=== PATIENT | male | born 1960 | race Caucasian/White ===

== ENCOUNTER → 2018-04-04 13:25 | Outpatient (CLI) | payer OTHER ==
[2014-04-13 17:30] VITALS: BMI 37.3
[~2018-04-04 13:25] MED LIST: ELIQUIS2.5 MG PO; HYDROCODONE-APA1 TAB PO
== END | disposition home or self-care (01) ==
LOC: D.RAD 13:25
DX: R06.02 Shortness of breath (principal); M54.5 Low back pain

== ENCOUNTER 2020-05-28 21:17 | Observation (INO) | payer BC ==
[~2020-05-28] VITALS: Ht 188 cm; Wt 161.4 kg
--- NOTE | ~2020-05-28 | HEMODYNAMI ---
PATIENT:LAWANDA ARCHER MEDICAL RECORD: [id number] : 58 [facility] [id number] ADMISSION DATE: 05/28/20 Generatedon:111:14 Patient name: LAWANDA ARCHER Patient #: [id number] SSN: : 1960 Date of study: 05/29/2020 Page: Of Hemodynamic Procedure Report Patient Data Patient Demographics Procedure consent was obtained First Name: LAWANDA Gender: Male Last Name: SUZI : 1960 Patient #: [id number] Age: 59 year(s) Race: Unknown Additional ID: [id number] Contact details Address: [address] [place] [address] State: [place] City: [facility] Zip code: [address] Past Medical History Allergies: No known allergies Admission Admission Data Admission Date: 05/28/2020 Admission Time: 22:24 Room #: D.2117 Lab Results Lab Result Date: 05/29/2020 Lab Result Time: 0:00 Biochemistry Name Units Result Min Max BUN mg/dl 10 --(-*--)-- 7 18 Creatinine mg/dl 0.7 --(*---)-- 0.6 1.3 eGFR ml/min 90 --(*---)-- 90 120 NONAFRICAN CBC Name Units Result Min Max Hematocrit % 42.3 --(*---)-- 42 54 Hemoglobin g/dl 14.3 --(*---)-- 13.5 17.5 Procedure Procedure Types Cath Procedure Diagnostic Procedure C [facility] w/Coronaries Sedation Charges Moderate Sedation 10-24 minutes Procedure Description Procedure Date Procedure Date: 05/29/2020 Procedure Start Time: 11:00 Procedure End Time: 11:13 Procedure Staff Name Function Gabriele Medrano MD Performing Physician Marleny Ozuna RT Monitor Vibha De Leon RT Scrub Jyoti Marrero RN Nurse Procedure Data Cath Procedure Fluoroscopy Diagnostic fluoroscopy Total fluoroscopy Time: 0.9 time: 0.9 min min Diagnostic fluoroscopy Total fluoroscopy dose: 635 dose: 635 mGy mGy Contrast Material Contrast Material Type Amount (ml) Isovue 300 54 Entry Location Entry Primary Successful Side Size Upsize Upsize Entry Closure Succes sful Closure Location (Fr) 1 (Fr) 2 (Fr) Remarks Device Remarks Femoral Right 5 Fr Exoseal artery Estimated blood loss: 5 ml Diagnostic catheters Device Type Used For End Catheter Placement MULTIPACK JL 4.0 5Fr Procedure catheter MULTIPACK 3DRC 5Fr Procedure catheter MULTIPACK Pigtail 5 Fr Procedure catheter Procedure Complications No complications Procedure Medications Medication Administration Route Dosage Oxygen etCO2 Nasal cannula 2 l/min Lidocaine 2% added to field 20 Heparin Flush Bag added to field 2 bags (1000units/500ml NS) 0.9% NaCl I.V. 100 ml/hr Versed I.V. 1 mg Fentanyl I.V. 50 mcg Versed I.V. 1 mg Fentanyl I.V. 50 mcg Hemodynamics Rest HGB: 14.3 (g/dl) Heart Rate: 50 (bpm) Pressure Samples Time Site Value (mmHg) Purpose Heart Use Rate(bpm) 11:07 LV 117/13,18 Snapshot 44 11:07 LV 115/11,18 Snapshot 44 Gradients Valve Time Site Site Mean SEP/DFP Peak To Heart Use 1 2 (mmHg) (sec/min) Peak Rate (mmHg) (bpm) Aortic 11:08 LV AO 49 Snapshots Pre Cath Intra NCS Post Cath Vital Signs Time Heart Resp SPO2 etCO2 NIBP (mmHg) Rhythm Pain Sedation Rate (ipm) (%) (mmHg) Status Level (bpm) 10:49:07 49 18 98 0 157/96(108) NSR 0 (11) 10(A) , No pain 10:53:21 52 14 98 0 153/90(141) NSR 0 (11) 10(A) , No pain 10:57:37 49 11 98 29.7 128/96(112) NSR 0 (11) 10(A) , No pain 11:01:47 42 15 99 31.2 123/65(96) NSR 0 (11) 10(A) , No pain 11:05:53 44 13 99 28.2 132/78(97) NSR 0 (11) 10(A) , No pain 11:10:00 43 14 99 31.9 133/79(115) NSR 0 (11) 10(A) , No pain Medications Time Medication Route Dose Verified Delivered Reason Notes Eff ectiveness by by 10:55:59 Oxygen etCO2 2 Gabriele Roeie used for Nasal l/min [facility] Javier Marrero RN procedure cannula 10:56:10 Lidocaine 2% added 20ml Gabriele Gabriele for local to vial [facility] anesthetic field MD WALTON 10:56:18 Heparin Flush added 2 Gabriele Gabriele used for Bag to bags [facility] procedure (1000units/500ml field MD WALTON NS) 10:56:27 0.9% NaCl I.V. 100 Gabriele Montes Per ml/hr [facility] Javier Marrero RN physician 10:56:46 Versed I.V. 1 mg Gabriele Roeie for [facility] Javier Marrero RN sedation 10:56:52 Fentanyl I.V. 50 Gabriele Buffie for mcg [facility] Javier Marrero RN sedation 11:00:50 Versed I.V. 1 mg Gabriele Auie for [facility] Francisco Javier Marrero RN sedation 11:00:53 Fentanyl I.V. 50 Gabriele Buffie for [facility] [place] [facility] Francisco Javier Marrero RN sedation Procedure Log Time Note 10:30:28 Informed consent obtained and on chart 10:31:18 Procedure Status Urgent Heart Cath (IP). 10:31:20 Time tracking: Call back (After hours or weekends) 10:31:27 Plan of Care:Hemodynamics will remain stable., Cardiac rhythm will remain stable., Comfort level will be maintained., Respiratory function will remain adequate., Patient/ family verbilizes understanding of procedure., Procedure tolerated without complication., Recovers from procedure without complications.. 10:31:28 Jyoti Marrero RN sent for patient. Start room use. 10:33:28 H&P Date Dictated: 05/28/2020 ER History on chart.. 10:33:34 Patient allergic to No known allergies 10:34:07 Lab Result : BUN 10 mg/dl 10:34:07 Lab Result : Hemoglobin 14.3 g/dl 10:34:07 Lab Result : Hematocrit 42.3 % 10:34:07 Lab Result : Creatinine 0.7 mg/dl 10:34:07 Lab Result : eGFR NONAFRICAN 90 ml/min 10:40:10 Patient received from Med II to CCL 1 Alert and oriented. Tansferred to table in Supine position. 10:40:11 Warm blankets applied, and neeraj hugger turned on for patient comfort. 10:40:11 Correct patient and procedure confirmed by team. 10:40:12 ECG and BP/O2 sat monitors applied to patient. 10:48:01 Vital chart was started 10:48:03 Baseline sample Acquired. 10:48:25 Rhythm: sinus bradycardia 10:48:27 Full Disclosure recording started 10:48:27 Pre-procedure instructions explained to patient. 10:48:29 Pre-op teaching completed and patient verbalized understanding. 10:48:31 Family in patients room. 10:48:32 Patient NPO since Midnight. 10:48:34 Is patient on blood thinner?No 10:48:36 Patient diabetic? No. 10:48:38 Previous problem with sedation/anesthesia? No ? 10:48:39 Snore? Yes 10:48:40 Sleep apnea? No 10:48:42 Deviated septum? No 10:48:42 Opens mouth fully? Yes 10:48:43 Sticks out tongue? Yes 10:49:05 Airway obstruction? Yes HAS HAD A PE IN PAST. MILD ASTHMA. USES INHALER FOR EXASTERBATION 10:49:08 Dentures? No ? 10:49:13 Pre procedure: right dorsailis pedis pulse 2+ Normal; easily identifiable; not easily obliterated 10:49:15 Patient pain scale 0/10 ?. 10:49:19 IV patent on arrival in right antecubital with 0.9% NaCl at KVO. 10:49:21 Lab results completed and on chart. 10:49:24 Right groin area was prepped with chlora-prep and draped in sterile fashion 10:49:25 Alarms reviewed by R. N. 10:49:25 Sharps counted by scrub and verified by R.N. 10:50:36 Use device set Femoral Dx 10:50:37 ACIST Syringe (53101) opened to sterile field. 10:50:37 Bag Decanter (2002S) opened to sterile field. 10:50:38 ACIST Hand Control (25051) opened to sterile field. 10:50:38 ACIST Manifold (74346) opened to sterile field. 10:50:39 Tegaderm 4 x 4 (1626W) opened to sterile field. 10:50:40 Medline Cath Pack ([id number]) opened to sterile field. 10:50:41 DIAGNOSTIC Multipack 5Fr catheter set (XD2589) opened to sterile field. 10:50:41 SHEATH 5FR [place] (XAW070) opened to sterile field. 10:50:42 EMERALD Guide Wire (933-263) opened to sterile field. 10:52:53 --------ALL STOP TIME OUT------ 10:52:53 Final Timeout: patient, procedure, and site verified with staff and physician. All members of the team are in agreement. 10:52:55 Right groin site verified by team. 10:52:57 Fire Safety Assessment: A--An alcohol-based skin anteseptic being used preoperatively., C--Open oxygen or nitrous oxide is being used., D--An ESU, laser, or fiber-optic light is being used. 10:53:00 Physical assessment completed. ASA score P 2 - A patient with mild systemic disease as per Gabriele Medrano MD. 10:53:02 1) 90+ Normal kidney functon but urine findings or structural abnormalities or genetic trait point to kidney disease. 10:53:04 Maximum allowable contrast dose (3.7 X eGFR X 0.75)250 ml. 10:53:08 Sedation plan: IV Moderate Sedation Medication:Versed, Fentanyl 10:55:59 Oxygen 2 l/min etCO2 Nasal cannula was administered by Jyoti Marrero RN; used for procedure; Verbal order read back and verified. 10:56:10 Lidocaine 2% 20ml vial added to field was administered by Gabriele Medrano MD; for local anesthetic; Verbal order read back and verified. 10:56:18 Heparin Flush Bag (1000units/500ml NS) 2 bags added to field was administered by Gabriele Medrano MD; used for procedure; Verbal order read back and verified. 10:56:27 0.9% NaCl 100 ml/hr I.V. was administered by Jyoti Marrero RN; Per physician; Verbal order read back and verified. 10:56:46 Versed 1 mg I.V. was administered by Jyoti Marrero RN; for sedation; Verbal order read back and verified. 10:56:52 Fentanyl 50 mcg I.V. was administered by Jyoti Marrero RN; for sedation; Verbal order read back and verified. 11:00:38 Procedure started. 11:00:50 Versed 1 mg I.V. was administered by Jyoti Marrero RN; for sedation; Verbal order read back and verified. 11:00:50 Local anesthetic to right femoral artery with Lidocaine 2% by Gabriele Medrano MD.INITIAL ACCESS ONLY 11:00:53 Fentanyl 50 mcg I.V. was administered by Jyoti Marrero RN; for sedation; Verbal order read back and verified. 11:02:14 NEEDLE Merit 18G 9cm Percutaneous Entry ([id number]) opened to sterile field. 11:03:16 A 5 Fr sheath was inserted into the Right Femoral artery 11:03:46 Baseline sample Acquired. 11:04:02 A MULTIPACK JL 4.0 5Fr catheter was advanced over the wire and used for Procedure. 11:05:23 LCA angiography performed. 11:05:26 Catheter removed. 11:06:06 A MULTIPACK 3DRC 5Fr catheter was advanced over the wire and used for Procedure. 11:06:21 RCA angiography performed. 11:06:22 Catheter removed. 11:06:24 ACCDominant side:Left 11:06:35 A MULTIPACK Pigtail 5 Fr catheter was advanced over the wire and used for Procedure. 11:07:18 LV gram done using GAMBLE 11:07:20 Injector settings: Ml/sec: 10, Volume: 20, 11:07:42 LV hemodynamics recorded. 11:07:50 EF : 55 % 11:07:53 Catheter removed. 11:08:03 EXOSEAL 5Fr (EX500) opened to sterile field. 11:09:06 Sheath removed intact; hemostasis achieved with Exoseal to the Right Femoral artery. 11:09:09 Procedure ended.(Physican Out) 11:09:15 Fluoroscopy time 00.90 minutes. 11:09:19 Fluoroscopy dose: 635 mGy 11:09:19 Flurop Dose total: 635 11:09:24 Dose Area Product 45161 mGy/cm. 11:09:28 Contrast amount:Isovue 300 54ml. 11:09:31 Maximum allowable dose exceeded? No. 11:09:32 Sharps counted by scrub and verified by R.N. 11:09:34 Post-op/insertion site Right Femoral artery dressed using a 4 x 4 and Tegaderm. 11:09:36 Post-procedure physical assessment completed. ASA score P 2 - A patient with mild systemic disease as per Gabriele Medrano MD. 11:09:40 Post procedure rhythm: sinus bradycardia 11:09:41 Estimated blood loss: 5 ml 11:09:43 Patient needs reinforcement of post procedure teaching. 11:09:43 Post procedure instruction explained to patient.Patient verbalizes understanding. 11:09:57 Procedure type changed to Cath procedure, Diagnostic procedure, LHC, LHC w/Coronaries, Sedation Charges, Moderate Sedation 10-24 minutes 11:10:09 Procedure and supply charges have been captured, reviewed, submitted and are correct. 11:10:11 Procedure Complication : No complications 11:10:14 LH Findings: mild to moderate CAD (<70%) 11:10:15 Operative report dictated upon procedure completion. 11:10:16 See physician's report for complete and final results. 11:10:21 Report given to [facility] II. 11:13:06 Vital chart was stopped 11:13:11 Patient transfered to [facility] II with Bed. 11:13:13 Procedure ended. 11:13:13 Full Disclosure recording stopped 11:13:18 End room use (Document Last) 11:13:41 Procedure ended.(Physican Out) Device Usage Item Name Manufacture Quantity Catalog Hospital Part Current Minimal Lot# / Number Charge Number Stock Stock Serial# Code ACIST Acist 1 71710 062191 183274 778962 20 Syringe Medical (53339) Systems Inc Bag Decanter Microtek 1 2001S 242908 05144 196314 5 (2001S) Medical Inc. ACIST Hand Acist 1 34290 982451 528028 476665 5 Control Medical (25710) Systems Inc ACIST Acist 1 87871 334837 139450 338820 5 Manifold Medical (55103) Systems Inc Tegaderm 4 x 3M 1 1626W 184983 303209 979358 5 4 (1626W) Medline Cath Medline 1 [id number] 876808 68655 629013 5 Pack ([id number]) DIAGNOSTIC Cardinal 1 KL7805 202227 56901 878543 30 Skelta Software 5Fr catheter set (OD7762) SHEATH 5FR Terumo 1 WZL665 283932 060371 264940 5 [place] (RKT363) EMERALD Cardinal 1 502-455 135756 829656 300083 5 Guide Wire PECO Pallet (802-604) NEEDLE Merit Merit 1 [id number] 618812 927288 074482 5 18G 9cm Medical Percutaneous Entry ([id number]) MULTIPACK JL Cardinal 1 173227 5 4.0 5Fr Health catheter MULTIPACK Cardinal 1 [id number] 5 3DRC 5Fr Health catheter MULTIPACK Cardinal 1 272628 5 Pigtail 5 Fr Health catheter EXOSEAL 5Fr Cardinal 1 EX500 546682 745317 880327 10 (EX500) Health Signature Audit [place] Stage Time Signature Unsigned Intra-Procedure 05/29/2020 Marleny Ozuna 11:13:25 AM RT(R) Intra-Procedure 05/29/2020 Jyoti Marrero RN 11:13:41 AM Intra-Procedure 05/29/2020 Gabriele Vallejo 11:14:01 AM Francisco Javier [facility] [address] [place] [address]
--- NOTE | ~2020-05-28 | EC ---
PATIENT:LAWANDA ARCHER DATE OF SERVICE: 05/28/20 SEX: M MEDICAL RECORD: [id number] DATE OF : 58 LOCATION:D.M2 D.211 AGE OF PATIENT: 59 ADMISSION DATE: 05/28/20 REFERRING PHYSICIAN: INTERPRETING PHYSICIAN: VICTORIA FRITZ MD ECHOCARDIOGRAM REPORT ECHO CHARGES 4 ECHO COMPLETE Date: 05/29/20 CLINICAL DIAGNOSIS: NEW ONSET A-FIB ECHOCARDIOGRAPHIC MEASUREMENTS (adult normal given) AC root (d.<3.7cm) 3.7 cm LV Septum d (<1.2 cm> 1.7 cm Valve Excursion 2.1 cm LV Septum (systole) 2.0 cm Left Atria (s.<4.0cm> 4.3 cm LVPW d(<1.2cm) 1.4 cm RV (d.<2.3cm) 3.6 cm LVPW (sytole) 2.2 cm LV diastole(<5.6CM) 5.4 cm MV E-F(>70mm/sec) cm LV systole 3.2 cm LVOT Diameter 2.2 cm MV exc.(>10mm) cm Est.ejection fraction (50-75%) % DOPPLER: LVIT cm/sec A 41.0 cm/sec E 75.0 cm/sec LA cm/sec RVSP 34.0 mmHg LVOT 58.0 cm/sec AOP1/2T m/s Asc. Ao 108 cm/sec RVOT 67.0 cm/sec RA cm/sec PA 80.0 cm/sec AV Gradient Peak 4.6 mmHg AV Mean 2.6 mmHg AV Area 1.8 cm MV Gradient Peak 2.6 mmHg MV Mean 0.64 mmHg MV Area cm COMMENTS: Chaperon: 1 LAYTON KAVITHA Cook'S Assistant: 3 Dr. Oconnor TAPE# PACS Pericardial Effusion N DATE OF SERVICE: Adequate 2D, color flow imaging, spectral Doppler, and M-Mode. FINDINGS: LVH is present. LV internal dimensions are normal. Wall motion is normal. EF is greater than or equal to 55%. Aortic valve is tricuspid. No evidence of stenosis by Doppler interrogation. Left atrium is mildly dilated at 4.3 cm. Mitral valve shows no prolapse. Trace MR. Right-sided chamber is grossly normal. Mild TR. ECHOCARDIOGRAM REPORT [id number] LAWANDA ARCHER TRANSINT:[id number] Voice Confirmation ID: [id number] DOCUMENT ID: [id number] VICTORIA FRITZ MD CC: [id number] DICTATION DATE: 05/30/20 111 ELECTROLYSIS ENGINEER: 05/30/20 1433 DIS IN 05/29/20 [facility] [address] [place] [id number]
[2020-05-28 21:34] LABS: BASOPHILS 0.6 % (0-2); EOSINOPHILS 2.5 % (0-7); IMMATURE GRANULOCYTES 0.1 % (0-5); MCH 31.3 pg (26.0-34.0); MCHC 34.8 g/dL (31.0-37.0); MCV 89.8 fL (80.0-100.0); MEAN PLATELET VOLUME 9.6 fL (7.4-10.4); MONOCYTES 8.8 % (2-11); NEUTROPHIL ABS# 3.95 10x3/uL (1.78-5.38); PLATELET COUNT 236 10x3/uL (130-400); RBC 5.12 10x6/uL (4.20-6.10); RDW 13.1 % (11.5-14.5); WBC 8.6 10x3/uL (4.8-10.8)
[2020-05-28 21:42] LABS: CALC OSMOLALITY 280 mosm/kg (275-300); CALCIUM 8.7 mg/dL (8.5-10.1); CARBON DIOXIDE 24.3 mmol/L (21.0-32.0); CHLORIDE - SERUM 104 mmol/L (98-107); CREATININE - SERUM 1.1 mg/dL (0.6-1.3); GLUCOSE 135 mg/dL (74-106); POTASSIUM - SERUM 3.2 mmol/L (3.5-5.1); SODIUM 139 mmol/L (136-145); UREA NITROGEN 14 mg/dL (7-18); eGFR NON AFRICAN AMERICAN 72 mL/min (90-120)
[2020-05-28 21:44] LABS: APTT 28.8 SECONDS (22.8-39.4); INR 1.03 (0.85-1.17); PROTIME 12.5 SECONDS (11.6-15.0)
[2020-05-28 21:46] LABS: D-DIMER-QUANTITATIVE 0.27 ug/mLFEU (0.20-0.54)
[2020-05-28 21:55] LABS: ALBUMIN 3.6 g/dL (3.4-5.0); ALKALINE PHOSPHATASE 126 U/L (30-120); ALT (SGPT) 45 U/L (10-68); BILIRUBIN - TOTAL 0.98 mg/dL (0.2-1.3); LIPASE 131 U/L (73-393); MAGNESIUM - SERUM 2.1 mg/dL (1.8-2.4); PRO BNP 46 pg/mL (0-125); PROTEIN - SERUM 7.7 g/dL (6.4-8.2)
[2020-05-28 21:57] LABS: TROPONIN-I < 0.017 ng/mL (0.000-0.060)
[2020-05-28 22:19] VITALS: BP 119/76
--- NOTE | 2020-05-29 00:29 | NUR ---
ADMIT TO ROOM 2117 FROM ER AT 2315. ALERT/ORIENTED. ABLE TO TRANSFER FROM STRETCHER TO BED. REPORT FROM ER STATES PT WAS IN AFIB RVR AND WAS GIVEN THE CARDIZEM BOLUS WHICH IMMEDIATELY CONVERTED HIM TO SR. ER CHOOSE TO NOT START THE CARDIZEM DRIP AT THIS TIME. ADMISSION ASSESSMENT AND HISTORY INITIATED. HOME MEDS REVIEWED.
[2020-05-29 01:47] VITALS: BP 136/79
[2020-05-29 05:08] LABS: BASOPHILS 0.5 % (0-2); EOSINOPHILS 1.3 % (0-7); HEMATOCRIT 42.3 % (42.0-54.0); HEMOGLOBIN 14.3 g/dL (13.5-17.5); IMMATURE GRANULOCYTES 0.2 % (0-5); LYMPHOCYTE ABS# 2.09 10x3/uL (1.32-3.57); LYMPHOCYTES 34.8 % (15-50); MCH 30.9 pg (26.0-34.0); MCHC 33.8 g/dL (31.0-37.0); MCV 91.4 fL (80.0-100.0); MEAN PLATELET VOLUME 9.7 fL (7.4-10.4); MONOCYTES 7.7 % (2-11); NEUTROPHIL ABS# 3.34 10x3/uL (1.78-5.38); NEUTROPHILS 55.5 % (40-80); PLATELET COUNT 192 10x3/uL (130-400); RBC 4.63 10x6/uL (4.20-6.10); RDW 13.3 % (11.5-14.5)
[2020-05-29 05:30] LABS: ALKALINE PHOSPHATASE 104 U/L (30-120); ALT (SGPT) 37 U/L (10-68); BILIRUBIN - TOTAL 0.72 mg/dL (0.2-1.3); CALC OSMOLALITY 276 mosm/kg (275-300); CALCIUM 8.1 mg/dL (8.5-10.1); CARBON DIOXIDE 27.4 mmol/L (21.0-32.0); CHLORIDE - SERUM 106 mmol/L (98-107); CREATININE - SERUM 0.7 mg/dL (0.6-1.3); GLUCOSE 101 mg/dL (74-106); MAGNESIUM - SERUM 2.2 mg/dL (1.8-2.4); PHOSPHOROUS 3.8 mg/dL (2.5-4.9); PROTEIN - SERUM 6.3 g/dL (6.4-8.2); SODIUM 139 mmol/L (136-145); UREA NITROGEN 10 mg/dL (7-18); eGFR NON AFRICAN AMERICAN > 90 mL/min (90-120)
[2020-05-29 05:50] VITALS: BP 118/65
[2020-05-29 06:32] VITALS: BP 119/76; Ht 188 cm; Wt 161.4 kg
[2020-05-29] MEDS ORDERED: TOPROL XL50 MG PO (06:52)
[2020-05-29] MEDS ORDERED: [UNRECOGNIZED DRUG - OTHER] (07:02)
[2020-05-29 07:34] VITALS: BP 125/75
--- NOTE | 2020-05-29 08:12 | NUR ---
650MG OF TYLENOL FOR PAIN LEVEL OF 8/10. PT DENIES ANY OTHER NEEDS AT THIS TIME. PT A/O X4, RESP EVEN AND NONLABORED ON RA. CALL LIGHT IN REACH, WILL CONTINUE PLAN OF CARE.
[2020-05-29 09:20] LABS: CHOL - HDL RATIO 4.9 ratio (2.3-4.9); LDL-HDL RATIO 3.4 ratio (1.5-3.5)
--- NOTE | 2020-05-29 10:46 | NUR ---
PT TO BLISTER PACK OPERATOR.
--- NOTE | 2020-05-29 11:36 | NUR ---
RECEIVED PT BACK TO ROOM 2117 PT A/O X4. VITAL SIGNS STABLE, PLACED PT ON FREQUENT VITAL SIGNS. RT GROIN DRESSING CDI, NO S/S OF BLEEDING OR HEMATOMA. INTRUCTED PT TO REMAIN FLAT FOR 2HRS.
[2020-05-29 11:47] VITALS: BP 108/66
[2020-05-29] MEDS ORDERED: TOPROL XL25 MG PO (11:54)
[2020-05-29] MEDS ORDERED: PROPAFENONE HC225 MG PO (12:42)
--- NOTE | 2020-05-29 14:33 | NUR ---
PROVIDED VERBAL AND WRITTEN DISCHARGE TEACHING TO PT AND PT'S , PT STATING THAT THE DOCTOR DID NOT GO IN TO TALK TO HIM THAT SOMEONE JUST TOLD THE THAT THEY WOULD BE BACK LATER SINCE PT WAS SLEEPING BUT NEVER CAME BACK, CALLED RANDEE AMOR AND ASKED HIM IF HE COULD COME AND TALK TO PT AND SPOUSE, RANDEE STATED THAT HE HAD ALREADY TALKED TO THEM AND SO DID CARDIOLOGY. PT LEFT UNIT VIA WHEELCHAIR, WITH ALL BELONGINGS.
--- NOTE | 2020-05-30 09:56 | CN ---
PATIENT NAME:LAWANDA ARCHER MEDICAL RECORD: [id number] : 58 LOCATION:[facility] D.2117 ADMIT DATE: 05/28/20 ACCOUNT: [id number] CONSULTING PHYSICIAN: VICTORIA FRITZ MD REFERRING PHYSICIAN: DANE BANEGAS MD DATE OF CONSULTATION: 05/29/2020 HISTORY OF PRESENT ILLNESS: A 59-year-old gentleman with no known cardiovascular history, has history of hypertension, hyperlipidemia, strong family history of coronary artery disease, admitted with atrial fibrillation with RVR, unstable angina, symptomatology began suddenly. No recent increase in caffeine intake. Has noted some increasing effort intolerance over the past 4 to 6 weeks as well with more breathless with exertion. We are asked to see him concerning his cardiovascular status. PAST MEDICAL HISTORY: Includes; 1. History of hypertension. 2. Hyperlipidemia. 3. Pulmonary embolus. MEDICATIONS: Chronically include metoprolol 50 b.i.d., aspirin 81 every day. ALLERGIES: None known. SOCIAL HISTORY: Nonsmoker, social drinker. Easily takes care of all his ADLs. REVIEW OF SYSTEMS: The patient reports easy bruising but reports no swollen glands. The patient reports no fever, no night sweats, no significant weight gain, no significant weight loss. No significant exercise tolerance. The patient reports no dry eyes, no irritation, no vision change. Patient reports no difficulty hearing and no ear pain. Patient reports no frequent nose bleeds or nose and sinus problems. Patient reports on arm pain on exertion. No shortness of breath while lying down. No history of heart murmur. Patient reports no cough, no wheezing or coughing up blood. Patient reports no abdominal pain, no vomiting. Normal appetite. No diarrhea and not vomiting blood. No nausea and no constipation. Patient reports no incontinence. No difficulty urinating. No hematuria. No increased frequency. Patient reports no muscle aches. No weakness, no arthralgias, no back pain. No swelling of the extremities. Patient reports no abnormal mole, no jaundice, no rashes. Reports no loss of consciousness. No weakness and no numbness. No seizures, dizziness, or headaches. The patient reports no depression, no sleep disturbance, feeling safe in a relationship and no alcohol abuse. Patient reports on fatigue. Reports no runny nose or sinus pressure. No itching, no hives, and no frequent sneezing. PHYSICAL EXAMINATION: GENERAL: Pleasant. No acute distress, appears stated age. VITAL SIGNS: Blood pressure 125/75, pulse 46 and regular. HEENT: Normocephalic, atraumatic. NECK: No bruits are noted. HEART: Regular. S4 gallop is noted. LUNGS: Good air excursion. ABDOMEN: Soft and nontender. EXTREMITIES: Pulses 2+. No edema. CONSULT REPORT [id number] LAWANDA ARCHER DIAGNOSTIC DATA: EKG with atrial fibrillation shows marked ST-T depression. IMPRESSION AND PLAN: Acute coronary syndrome secondary to atrial fibrillation, currently in sinus rhythm after IV Cardizem. We will plan for diagnostic angiography to delineate anatomy. Further recommendations based on the above. TRANSINT:[id number] Voice Confirmation ID: [id number] DOCUMENT ID: [id number] VICTORIA FRITZ MD at 0956 CC: [id number] DICTATION DATE: 05/29/20940 CORRECTIONAL MANAGER: 05/29/20 1323 DIS IN 05/29/20 [id number] [place] [address]
--- NOTE | 2020-05-30 09:56 | OP ---
PATIENT NAME: LAWANDA ARCHER MEDICAL RECORD: [id number] :58 LOCATION:D.M2 D.2116 ADMISSION DATE:05/28/20 SURGEON: VICTORIA FRITZ MD DATE OF OPERATION: 05/29/2020 PROCEDURE PERFORMED: Left heart catheterization, selective coronary angiography, right femoral artery approach. CATHETERS: A 5-Khmer sheath, 5/4 left and right Alirio, 5/4 pig. The procedure was well tolerated, the patient returned to the lucio, sheath removed. ExoSeal device placed. FINDINGS: Left ventriculography in 30-degree GAMBLE view, normal wall motion, normal systolic function. CORONARY ANATOMY: LEFT MAIN: Left main is free of disease. LAD: Free of disease in the diagonal system. CIRCUMFLEX: Free of disease in the marginal system. RIGHT CORONARY ARTERY: Dominant artery, gives to rise PDA, free of disease. IMPRESSION: Normal left ventricular function, normal coronary anatomy. TRANSINT:[id number] Voice Confirmation ID: [id number] DOCUMENT ID: [id number] VICTORIA FRITZ MD at 0956 CC: [id number] DICTATION DATE: 05/29/20 1115 CHANGE ROOM ATTENDANT: 05/29/201950 DIS IN 05/29/20 [facility] [address] [place] [address]
== END 2020-05-29 17:09 | disposition home or self-care (01) ==
LOC: D.ER 21:17 → OBSVTIME 22:24 → D.M2 22:24
PROVIDERS: Family Medicine; Internal Medicine Interventional Cardiology; ADMIT Emergency Medicine; ATTEND Emergency Medicine
DX: I48.20 Chronic atrial fibrillation, unspecified (principal); I10 Essential (primary) hypertension; E78.5 Hyperlipidemia, unspecified; I24.9 Acute ischemic heart disease, unspecified; R11.2 Nausea with vomiting, unspecified; R07.9 Chest pain, unspecified